=== PATIENT | male | born 1955 ===

== ENCOUNTER → 2016-07-16 | Outpatient (CLI) | payer OTHER | LOC: RAD 12:29 | PROVIDERS: ATTEND Physician Assistant | DX: Z53.8 Procedure and treatment not carried out for other reasons (principal) ==

== ENCOUNTER → 2016-07-16 | Outpatient (CLI) | payer OTHER ==
[2016-07-16 14:31] VITALS: BP 123/68
--- NOTE | 2016-07-16 14:31 | Urgent Care T Sheet Gen (E) ---
Intake General Temperature (Fahrenheit): 99.3 Pulse: 98 Blood Pressure Systolic: 123 Blood Pressure Diastolic: 68 Respirations: 20 SPO2: 96 Description of Symptoms Patient presents with sudden onset of L flank pain which radiates into the groin. States the pain started as intermittent but is now constant. Also notes nausea due to pain. Patient had a kidney stone approx 20 years ago, and this pain feels similar. Patient is from [facility] and is in [place] after driving here this morning. Patient states he doesn't have a PCP because he "never gets sick". Took some Advil early this AM due to pain however states it wore off a while ago. Patient states his bladder feels full but he can't go. Respiratory Constitutional Symptoms: DiaphoresisNo Fever EENTM: No symptoms reported Respiratory: No symptoms reported Cardiovascular: No symptoms reported Gastrointestinal/Abdominal: NauseaNo Vomiting Genitourinary: Decreased output Pain Musculoskeletal: Back pain All Other Systems Reviewed Remaining Systems: All other systems reviewed with negative findings Physical Exam Physical Exam General Appearance: WD/WN Mild distress Respiratory Exam: Lungs clear Normal breath sounds Cardiovascular Exam: Regular rate, rhythm GI/ Exam: Tenderness (suprapubic region) Back Exam: CVA tenderness (L) (and palpation causes radiating pain to the groin) Procedures/Interventions Additional Procedure/Treatment : Progress With help of my [employer], straight cath was performed however urine was not collected. We then applied pressure to the suprapubic region and reinserted the catheter without urine collection. Progress/Orders Progress Note: Progress Note Non-contrast helical CT of the abd/pelvis shows: Lab Results Labs Results: UA Medications Administered Medications Adminstered: Toradol IM (IM injection into R gluteal. Lot [id number] 05/2017), Zofran 4mg ODT ([id number] 08/2017), Child Tylenol 160mg/ 5ml (We had no adult strength Tylenol tabs therefore I had to give the patient Children's Tylenol #15ml which amounted to 480mg. Lot [id number] 01/19/17) Departure Urgent Care Impression Impression: Primary Impression: Flank pain, acute Departure Disposition: 01 HOME OR SELF-CARE Condition: Stable Additional Instructions: This has been a difficult patient interaction. The patient arrived at around 11am. His history and physical exam pointed to possible kidney stone. I asked the patient for a urine sample to perform a UA. After numerous attempts , the patient still was unable to void. He is from [place] and didn't have his insurance card on him. 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 At noon , the patient's called and gave his [employer] insurance information. At around 11:30am, the patient received Toradol 60mg IM injection and Zofran 4mg. Patient states the medication helped to alleviate his pain and nausea. The patient didn't have a car, his co-worker dropped him off, therefore I drove him to the hospital to have a CT of the abd/pelvis to confirm kidney stone diagnosis and to see the size and location, which would direct treatment. At 2pm, approx 2 hours after I last saw him, the patient called stating "I'm done with this. Please come and get me so I can go home". Apparently, with the patient's out of state insurance, a CT of the abdomen (whether it is warranted or not) requires prior auth and could take up to 3 hours to receive. The patient understandably was very frustrated and wanted to head home. After picking him up from the hospital, we returned to where I attempted to straight cath the patient. After 2 attempts with pressure to the suprapubic region, I wasn't able to collect any urine. Most likely due to dehydration or worse case scenario, obstruction from a stone. The patient again states he wants to go home "while the medication is still working". I advised him to present to the ER where they can avoid [employer]'s prior auth and appropriately work him up however he declined numerous times. We didn't have any Tylenol tabs , so I was forced to give him children's Tylenol. This in combination with the previous Toradol should help lessen the pain until he returns home to [place]. Again, I am hesitant to have him leave without going to the ER for proper workup however he declined. I reiterated the importance of being seen as soon as he returns to [place], which he agrees. If at any time while driving from [place] to [place], his pain worsens or his symptoms change, he is to find the closest ER and present there. Patient agrees. At 2:15pm, the patient left Urgent Care. Again, this was his decision and was against medical advise, which is to present to the ER. Patient acknowledged the risks and assumes all responsibility. End of report . DANII STAUFFER Jul 16, 2016 11:52
== END ==
LOC: MHUC 10:49
PROVIDERS: ATTEND Physician Assistant
DX: R10.32 Left lower quadrant pain (principal)
CPT/HCPCS: 99213